=== PATIENT | female | born 1985 | race Caucasian/White ===

== ENCOUNTER 2021-11-12 14:08 | Emergency (ER) | payer OTHER ==
[~2021-11-12] VITALS: Ht 157.5 cm; Wt 54.4 kg
== END 2021-11-12 18:08 | disposition home or self-care (01) ==
LOC: ER 14:08
DX: S93.401A Sprain of unspecified ligament of right ankle, initial encounter (principal); W10.9XXA Fall (on) (from) unspecified stairs and steps, initial encounter
CPT/HCPCS: 73610; 73630; 99283-25

== ENCOUNTER 2022-07-27 16:34 | Emergency (ER) | payer OTHER ==
[~2022-07-27] VITALS: Ht 149.9 cm; Wt 54.4 kg
[2022-07-27] MEDS ORDERED: LIDOCAINE1 EACH TOP (18:10)
== END 2022-07-27 18:42 | disposition home or self-care (01) ==
LOC: ER 16:34
DX: T23.172A Burn of first degree of left wrist, initial encounter (principal); T31.0 Burns involving less than 10% of body surface; W22.8XXA Striking against or struck by other objects, initial encounter
CPT/HCPCS: 16000; 96372-59; 99283-25; A9270; J1885